=== PATIENT | male | born 1945 | race Two or more races ===

== ENCOUNTER 2016-12-02 12:34 | Day surgery (SDC) | payer OTHER, MEDICARE ==
[2016-12-02] MEDS ORDERED: LACTATED RINGERS 1,000 ML ONE (12:36)
[2016-12-02] MEDS ORDERED: CEFAZOLIN SODIUM 2 GRAM PREMIX 100 ML IV ONE (12:37)
[2016-12-02] MEDS ORDERED: IV START KIT ONE (12:37)
[2016-12-02] MEDS ORDERED: CEFAZOLIN SODIUM 2 GRAM PREMIX 100 ML IV PRN (12:45)
[2016-12-02] MEDS ORDERED: FENTANYL 5 ML ONE (13:22)
[2016-12-02] MEDS ORDERED: MIDAZOLAM HCL 1 MG/ML 2ML VIAL ONE (13:22)
[2016-12-02] MEDS ORDERED: CEFAZOLIN SODIUM 1,000 MG VIAL ONE (13:36)
[2016-12-02] MEDS ORDERED: BUPIVACAINE 0.5% (PRES FREE) 30 ML VIAL ONE (13:36)
[2016-12-02] MEDS ORDERED: SODIUM CHLORIDE 0.9% FLUSH 10 ML ONE (13:36)
[2016-12-02] MEDS ORDERED: PROPOFOL 20 ML IV ONE (14:39)
[2016-12-02] MEDS ORDERED: EPHEDRINE SULFATE UD SYR 25 MG 25 MG/5 ML SYRINGE IV ONE ×2 (14:43→14:46)
[2016-12-02] MEDS ORDERED: ONDANSETRON 4 MG/2ML 2 ML VIAL ONE (14:44)
[2016-12-02] MEDS ORDERED: DEXAMETHASONE SOD PHOS 4 MG/1 ML VIAL ONE (14:44)
[2016-12-02] MEDS ORDERED: ATROPINE SULFATE 0.4 MG/1 ML VIAL IV PRN (14:56)
[2016-12-02] MEDS ORDERED: FENTANYL 100 MCG/2 ML VIAL IV PRN (14:56)
[2016-12-02] MEDS ORDERED: NALOXONE HCL 0.4 MG/ML VIAL IV PRN (14:56)
[2016-12-02] MEDS ORDERED: PROMETHAZINE HCL 25 MG/ML VIAL IM PRN (14:56)
[2016-12-02] MEDS ORDERED: ONDANSETRON 4 MG/2ML 2 ML VIAL IV PRN ×2 (14:56→16:22)
[2016-12-02] MEDS ORDERED: LACTATED RINGERS 1,000 ML IV SCH (15:00)
[2016-12-02] MEDS ORDERED: KETOROLAC TROMETHAMINE 30 MG/ML 1 ML VIAL ONE (15:42)
[2016-12-02] MEDS ORDERED: OXYCODONE/ACETAMINOPHEN 5/325 MG TABLET PO PRN (16:22)
[2016-12-02] MEDS ORDERED: MORPHINE SULFATE 2 MG/ML SYRINGE IV PRN (16:22)
[2016-12-02] MEDS ORDERED: OXYCODONE/ACETAMINOPHEN 5/325 MG TABLET ONE (17:34)
[2016-12-02] MEDS ORDERED: KETOROLAC TROMETHAMINE 30 MG/ML 1 ML VIAL IV PRN (21:45)
--- NOTE | 2016-12-03 02:10 | OP ---
AMADOR CONNOR [id number] DATE OF OPERATION: December 02, 2016 PREOPERATIVE DIAGNOSIS: Left inguinal hernia. POSTOPERATIVE DIAGNOSIS: Left inguinal hernia. PROCEDURE: LEFT INGUINAL HERNIA REPAIR WITH MESH PLUG AND PATCH. SURGEON: Guevara Martinez M.D. FITNESS STUDIES TEACHER: Aixa Banks ANESTHESIA: Sina Araujo.N.Bahman, LMA general. INDICATIONS: This is a 71-year-old male who has a large left inguinal hernia who presents for elective repair. It was questionable whether he had a right inguinal as well. We have decided to proceed with left hernia repair only being that the right side was not symptomatic and it was still questionable. DESCRIPTION: With informed consent he was taken to the operating room. He was laid supine on the operating room table. General anesthesia was administered. The left groin was prepped and draped in the usual fashion. Local anesthetic was administered in the skin and subcutaneous tissue. Incision was made over the inguinal canal. Electrocautery was used to divide the subcutaneous fat and Temitope's fascia. The external oblique was opened with a knife and Metzenbaum scissors in a fiber splitting technique. The cord structures were encircled at the level of the pubic tubercle with a Blencoe drain. An indirect sac was identified within the cord structures. This was fairly large. I dissected around the sac and opened it. It extended far down into the upper scrotum. With the sac completely transected, I dissected the proximal part of the sac down to the internal ring. It was closed then with a pursestring of #2-0 Vicryl. There was some preperitoneal fat along with this that was excised. It was allowed to reduce. I then dissected the distal part of the sac away from the cord structures. Again, going into the upper part of the scrotum. The sac was completely excised. A large mesh plug was placed into the defect around the indirect sac. This was secured at multiple points with some #2-0 Vicryl. A flat piece of mesh was then placed across the floor of the canal. The medial aspect overlapped the pubic tubercle. A slit was cut laterally. This was placed around the cord structures and secured laterally with #2-0 Vicryl. It was placed up beneath the external oblique. The wound was irrigated. We appeared to have adequate hemostasis. The external oblique was reapproximated with a running #2-0 Vicryl. Temitope's fascia was reapproximated with #3-0 Vicryl. Skin was closed with a running subcuticular #4-0 Monocryl. Mastisol and Steri-Strips were applied. Sterile dressings were applied. He tolerated the procedure and was taken to the recovery room in stable condition. A note was made that needle, instrument and lap counts were reported as correct at the time of closure.
== END 2016-12-02 18:05 | disposition home or self-care (01) ==
LOC: SDC 12:34
PROVIDERS: ATTEND Surgery
PROC: 0YU60JZ Supplement Left Inguinal Region with Synthetic Substitute, Open Approach (ICD-10-PCS; principal; 2016-12-02)
DX: K40.90 Unilateral inguinal hernia, without obstruction or gangrene, not specified as recurrent (principal)
CPT/HCPCS: 49505; J0690 ×2; J3010; J1100; A9270; J1885; J2250; J2405; J7120